=== PATIENT | male | born 1990 ===

== ENCOUNTER 2017-09-09 01:35 | Inpatient (IN) | payer MEDICAID, OTHER ==
[2017-09-09 02:08] LABS: Amphetamine Screen,Urine Not Detected (NotDetected); Barbiturate Screen,Urine Not Detected (NotDetected); Benzodiazepines Screen,Urine Not Detected (NotDetected); Cocaine Screen,Urine Not Detected (NotDetected); Methadone Screen, Urine Not Detected (NotDetected); Opiate Screen,Urine Not Detected (NotDetected); Oxycodone Screen, Urine Not Detected (NotDetected); Phencyclidine Screen,Urine Not Detected (NotDetected); Tricyclic Antidepressant,Urine Not Detected (NotDetected); Urn Cannabinoid Scrn Not Detected (NotDetected)
--- NOTE | 2017-09-09 03:27 | ED ---
Psych HPI - General Chief Complaint: Psychiatric Symptoms Stated Complaint: Mental health eval Time Seen by Provider: 09/09/17 01:44 Source: patient Mode of arrival: EMS - History of Present Illness Initial Comments: This patient is 19-year-old man who presents with complaint that he has been feeling more and more depressed and he is having thoughts of suicide. The patient is not completely forthcoming about stress source. He does have history of psychiatric illness but currently not with any treatment. He denies any medical complaints at this time. MD Complaint: suicidal ideation, feels depressed -: days(s) Associated Psychiatric Symptoms: depression History of same: Yes Quality: getting worse Improves With: none Worsens With: none Associated Symptoms: denies other symptoms - Related Data Home Medications Medication Instructions Recorded Confirmed risperiDONE [RisperDAL] 0.5 mg PO BID 09/09/17 09/09/17 Previous Rx's Medication Instructions Recorded Escitalopram [Lexapro] 10 mg PO DAILY #7 tab 03/20/15 Allergies Allergy/AdvReac Type Severity Reaction Status Date / Time No Known Allergies Allergy Verified 03/09/15 09:48 Review of Systems ROS Statement: Those systems with pertinent positive or pertinent negative responses have been documented in the HPI. ROS Other: All systems not noted in ROS Statement are negative. Constitutional: Denies: fever, chills Respiratory: Denies: cough, dyspnea Cardiovascular: Denies: chest pain, palpitations Gastrointestinal: Denies: abdominal pain, vomiting, diarrhea Genitourinary: Denies: dysuria, hematuria Musculoskeletal: Denies: back pain Skin: Denies: rash Neurological: Denies: headache, weakness Psychiatric: Reports: depression, suicidal thoughts. Denies: auditory hallucinations, visual hallucinations, homicidal thoughts Past Medical History Past Medical History: No Reported History History of Any Multi-Drug Resistant Organisms: None Reported Additional Past Surgical History / Comment(s): Open surgery on the left knee for infection Past Anesthesia/Blood Transfusion Reactions: No Reported Reaction Past Psychological History: Bipolar, Depression Smoking Status: Current every day smoker Past Alcohol Use History: Heavy Past Drug Use History: Cocaine, Heroin, IV Drug Use, Marijuana, Methamphetamine , Prescription Drug Abuse - Past Family History Father Family Medical History: No Reported History Additional Family Medical History / Comment(s): Father is alive at age 62 with history of anxiety. Mother Family Medical History: No Reported History Additional Family Medical History / Comment(s): Mother is alive at age 55 with history of epilepsy and depression. Patient had one brother and one sister that have both pasted and both were handicapped. General Exam Limitations: no limitations General appearance: alert, in no apparent distress Head exam: Present: atraumatic, normocephalic Eye exam: Present: normal appearance. Absent: scleral icterus, conjunctival injection Neck exam: Present: normal inspection Respiratory exam: Present: normal lung sounds bilaterally. Absent: respiratory distress, wheezes, rales, rhonchi, stridor Cardiovascular Exam: Present: regular rate, normal rhythm, normal heart sounds. Absent: systolic murmur, diastolic murmur, rubs, gallop GI/Abdominal exam: Present: soft. Absent: distended, tenderness, guarding, rebound, rigid Extremities exam: Present: normal inspection, normal capillary refill. Absent: pedal edema, calf tenderness Neurological exam: Present: alert, normal gait. Absent: motor sensory deficit Psychiatric exam: Present: depressed, flat affect, suicidal ideation. Absent: agitated, homicidal ideation Skin exam: Present: warm, dry, intact, normal color. Absent: rash Course Vital Signs 09/09/17 09/09/17 01:37 03:27 Temperature 98.8 F Pulse Rate 99 102 H Respiratory 20 20 Rate Blood Pressure 149/79 141/82 O2 Sat by Pulse 97 98 Oximetry Medical Decision Making - Lab Data Lab Results 09/09/17 Range/Units 01:42 Urine Opiates Screen Not Detected (NotDetected) Ur Oxycodone Screen Not Detected (NotDetected) Urine Methadone Screen Not Detected (NotDetected) Ur Propoxyphene Screen Not Detected (NotDetected) Ur Barbiturates Screen Not Detected (NotDetected) U Tricyclic Antidepress Not Detected (NotDetected) Ur Phencyclidine Scrn Not Detected (NotDetected) Ur Amphetamines Screen Not Detected (NotDetected) U Methamphetamines Scrn Not Detected (NotDetected) U Benzodiazepines Scrn Not Detected (NotDetected) Urine Cocaine Screen Not Detected (NotDetected) U Marijuana (THC) Screen Not Detected (NotDetected) Disposition Clinical Impression: Mood disorder Disposition: ADMITTED IP TO THIS [facility] Condition: Fair
[2017-09-09] MEDS ORDERED: LORazepam 1 MG TAB PO STA (04:03)
[2017-09-09] MEDS ORDERED: ZIPRASIDONE 20 MG VIAL IM STA (04:03)
[2017-09-09] MEDS ORDERED: ACETAMINOPHEN TAB 325 MG TAB PO PRN (04:13)
[2017-09-09] MEDS ORDERED: MAG HYDROX/AL HYDROX/SIMETH 30 ML CUP PO PRN (04:13)
[2017-09-09] MEDS ORDERED: MAGNESIUM HYDROXIDE 2,400 MG/10 ML CUP PO PRN (04:13)
[2017-09-09] MEDS: LORazepam 1 MG TAB PO PRN ×2 (09:40→16:37)
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
[2017-09-09] MEDS: ZIPRASIDONE 20 MG CAP PO SCH ×2 (11:57→21:20)
[2017-09-09] MEDS ORDERED: LOPERAMIDE 2 MG CAP PO PRN (11:58)
[2017-09-09] MEDS ORDERED: PROCHLORPERAZINE 10 MG TAB PO PRN (11:59)
--- NOTE | 2017-09-09 11:59 | P.PN ---
Subjective Progress Note Date: 09/09/17 Objective - Vital Signs Vital signs: Vital Signs Temp 98.3 F 09/09/17 04:42 Pulse 103 H 09/09/17 04:42 Resp 16 09/09/17 04:42 BP 126/96 09/09/17 04:42 Pulse Ox 98 09/09/17 04:42 Intake & Output 09/08/17 09/09/17 09/09/17 18:59 06:59 18:59 Weight 76.702 kg
[2017-09-09] MEDS ORDERED: SODIUM CHLORIDE 0.9% 1,000 ML IV SCH (12:00)
[2017-09-09] MEDS ORDERED: DOCUSATE 100 MG CAP PO PRN (12:01)
[2017-09-09] MEDS: NICOTINE 7MG/24HR PATCH TRANSDERM SCH (13:21)
[2017-09-09] MEDS: LORATADINE 10 MG TAB PO SCH (13:21)
--- NOTE | 2017-09-09 14:58 | P.HPMEDMHU ---
History of Present Illness H&P Date: 09/09/17 Chief Complaint: suicidal ideation Patient is a 27-year-old male for possible past medical history of hypertension, tobacco abuse, and EtOH misuse who presented with suicidal ideation has subsequently been admitted to the mental health unit. We are asked evaluate him regarding his blood pressures. Patient seen and examined. He wishes not to discuss his mental health. He does fall me that he has had constipation but has not had a bowel movement in 2 days. He is not having any abdominal discomfort from this but does feel full. He denies any nausea or vomiting. He also complains of a runny and stuffy nose with some postnasal drip. He denies any chest pain, shortness of breath, diarrhea, recent fevers fluids or coughs. He states that he was told he had high blood pressure once when he is seen in the ER has not followed with anyone since this. He has not taken any medications for this but states he was prescribed one. He has no other complaints currently Review of Systems Pertinent positives and negatives as per HPI remainder of 12 point review of systems is negative Past Medical History Additional Past Medical History / Comment(s): Possible hypertension History of Any Multi-Drug Resistant Organisms: None Reported Additional Past Surgical History / Comment(s): Open surgery on the left knee for infection X 4 Past Anesthesia/Blood Transfusion Reactions: No Reported Reaction Past Psychological History: Bipolar, Depression Smoking Status: Current every day smoker Past Alcohol Use History: Heavy Past Drug Use History: Cocaine, Heroin, IV Drug Use, Marijuana, Methamphetamine , Prescription Drug Abuse - Past Family History Father Family Medical History: No Reported History Additional Family Medical History / Comment(s): Father is alive at age 62 with history of anxiety. Mother Family Medical History: No Reported History Additional Family Medical History / Comment(s): Mother is alive at age 55 with history of epilepsy and depression. Patient had one brother and one sister that have both pasted and both were handicapped. MTERNAL GRANDFATHER STROKE Medications and Allergies Home Medications Medication Instructions Recorded Confirmed Type Escitalopram [Lexapro] 10 mg PO DAILY #7 tab 03/20/15 09/09/17 Rx risperiDONE [RisperDAL] 0.5 mg PO BID 09/09/17 09/09/17 History Allergies Allergy/AdvReac Type Severity Reaction Status Date / Time No Known Allergies Allergy Verified 03/09/15 09:48 Physical Exam Osteopathic Statement: *. No significant issues noted on an osteopathic structural exam other than those noted in the History and Physical/Consult. Vitals: Vital Signs Temp Pulse Pulse Resp BP BP Pulse Ox 09/09/17 04:42 98.3 F 103 H 16 126/96 98 09/09/17 03:27 102 H 20 141/82 98 09/09/17 01:37 98.8 F 99 20 149/79 97 Intake and Output 09/08/17 09/09/17 09/09/17 22:59 06:59 14:59 Other: Weight 76.702 kg General: non toxic, no distress, appears at stated age, normal weight Derm: no unusual rashes/lesions no unusual ecchymoses, warm, dry Head: atraumatic, normocephalic, symmetric Eyes: EOMI, no lid lag, anicteric sclera, pupils equal round reactive to light ENT: Nose and ears atraumatic, no thrush, + pharyngeal erythema, + posterior nasal drip Neck: No thyromegaly, no cervical lymphadenopathy, trachea midline, supple Mouth: no lip lesion, mucus membranes moist Cardiovascular: S1S2 reg, no murmur, positive posterior tibial pulse bilateral, no edema, capillary refill less than 2 seconds Lungs: CTA bilateral, no rhonchi, no rales , no accessory muscle use Abdominal: soft, nontender to palpation, no guarding, no appreciable organomegaly, normal bowel sounds Ext: no gross muscle atrophy, muscle strength 5 out of 5 in all 4 extremities grossly, no contractures, Psych: Alert, oriented, flat affect, slow thinking Cranial Nerve Examination - Cranial Nerves Cranial Nerve II- Optic: Intact Cranial Nerve III- Oculomotor: Intact Cranial Nerve IV- Trochlear: Intact Cranial Nerve V- Trigeminal: Intact Cranial Nerve - Abducens: Intact Cranial Nerve VII- Facial: Intact Cranial Nerve VIII- Auditory: Intact Cranial Nerve IX- Glossopharyngeal: Intact Cranial Nerve X- Vagus: Intact Cranial Nerve XI- Accessory: Intact Cranial Nerve XII- Hypoglossal: Intact Thrombosis Risk Factor Assmnt - DVT/VTE Prophylaxis DVT/VTE Prophylaxis: Low risk, early ambulation encouraged Assessment and Plan Assessment: Tobacco Abuse - Nicotine replacement - cessation Constipation - prn colace Suicidal ideation - your psych management Hx of HTN - BP currently not diagnostic of HTN - Will follow BP and intitiate meds as necessary Patient now agreeable to lab work. Thank you for allowing us to participate in the care of this patient. We will follow peripherally. Do not hesitate to contact us with questions. Someone can be reached from the [facility] hospitalist group at all hours of the day at [phone].
[2017-09-10] MEDS: LORazepam 1 MG TAB PO PRN ×3 (01:40→17:27)
[2017-09-10] MEDS: LORATADINE 10 MG TAB PO SCH (08:39)
[2017-09-10] MEDS: ZIPRASIDONE 20 MG CAP PO SCH (08:40)
[2017-09-10] MEDS: NICOTINE 7MG/24HR PATCH TRANSDERM SCH (08:40)
[2017-09-10 09:36] LABS: HCT 41.6 % (39.0-53.0); HGB 14.2 gm/dL (13.0-17.5); MCH 30.5 pg (25.0-35.0); MCV 89.5 fL (80.0-100.0); Mean Platelet Volume 6.5; Platelet Count 224 k/uL (150-450); RBC 4.65 m/uL (4.30-5.90); WBC 7.3 k/uL (3.8-10.6)
--- NOTE | 2017-09-10 09:53 | P.PN ---
Progress Note - Text Progress Note Date: 09/10/17 Patient was seen for a routine follow-up examination. He did not sleep well last night and was pacing the floor. He took his by mouth Geodon and he does not have any adverse effects. He appears to be less preoccupied with internal stimuli today and is able to engage in conversation better today. He is feeling a little better. He says he is worried quite a bit about several things. He was counseled that worrying about things over which we do not have any control is not helpful and can cause problem for us. He agreed. He said he is worried/concerned about his parents and his girlfriend. He could not tell me why he is concerned or worried about them. This is a white ambulatory male with adequate hygiene. He is polite and cooperative. He does not show any psychomotor agitation or retardation. His speech is soft short and fairly spontaneous. He does not appear to be preoccupied with internal stimuli. His mood is somewhat anxious and affect is rather constricted in range. He continues to report of auditory hallucinations which he does not understand well. He denies delusional thinking he reports of fleeting suicidal thoughts but is not preoccupied or concerned about those thoughts. He denies homicidal thoughts. He is well oriented with adequate general knowledge concentration etc. Asked Plan: Increase Geodon to 40 mg twice a day. Continue groups and other therapies.
[2017-09-10 09:55] LABS: ALT 22 U/L (21-72); AST 19 U/L (17-59); Albumin 4.6 g/dL (3.5-5.0); Alkaline Phosphatase 47 U/L (38-126); Anion Gap 9 mmol/L; Blood Urea Nitrogen 14 mg/dL (9-20); Calcium 9.9 mg/dL (8.4-10.2); Carbon Dioxide 30 mmol/L (22-30); Chloride 101 mmol/L (98-107); Cholesterol 123 mg/dL (<200); Glucose 94 mg/dL (74-99); HDL Cholesterol 73 mg/dL (40-60); LDL Cholesterol,Calculated 44 mg/dL (0-99); Potassium 4.4 mmol/L (3.5-5.1); Sodium 140 mmol/L (137-145); Total Bilirubin 0.9 mg/dL (0.2-1.3); Total Protein 7.1 g/dL (6.3-8.2); Triglycerides 29 mg/dL (<150)
[2017-09-10] MEDS: ZIPRASIDONE 40 MG CAP PO SCH (20:27)
[2017-09-10 20:43] LABS: Hemoglobin A1C 4.8 % (4.0-6.0)
[2017-09-11 06:52] VITALS: RESP 16
[2017-09-11] MEDS: ZIPRASIDONE 40 MG CAP PO SCH ×2 (09:16→21:37)
[2017-09-11] MEDS: LORATADINE 10 MG TAB PO SCH (09:17)
[2017-09-11] MEDS: NICOTINE 7MG/24HR PATCH TRANSDERM SCH (09:17)
[2017-09-11] MEDS: LORazepam 1 MG TAB PO PRN (14:10)
--- NOTE | 2017-09-11 14:32 | P.PN ---
Progress Note - Text Progress Note Date: 09/11/17 Interval History: Patient is a 27-year-old male who is seen in weekend coverage , patient continues to report that he is hearing voices and feeling paranoid. When interviewed the patient responds and only yes or no responses and is unable to elaborate further. Patient will stare during the interview. Patient was unable to verbalize any complaints of side effects from the medication. Mental Status: Appearance/Attitude: Patient is appropriately dressed, stares during the interview, is cooperative Behavior: Patient does not exhibit any psychomotor agitation or retardation. Speech/Language: Patient's speech is nonspontaneous, he responds and only brief sentences mostly yes or no, speaks in a normal tone and rhythm and is coherent Thought Process: Patient has evidence of thought blocking is his responses to questions are only yes known at times he stares and does not respond. Thought Content: Patient reports he is hearing voices but cannot elaborate on what he is hearing, denies visual hallucinations and states he remains paranoid but can again cannot elaborate. Patient appears confused and distracted during the interview, staring. Patient reports he is eating well and voiced no side effects from the medication Suicidal/Homicidal Ideation: Patient states that he is still feeling suicidal but again cannot elaborate and denied any homicidal ideation Sensorium/Cognition: Patient is alert and oriented to person, location further cognitive testing is not performed Mood/Affect: Patient's mood is guarded and his affect is flat Insight/Judgment: Patient's insight and judgment are limited Assessment: patient was seen today and he is on increased dose of Geodon to 40 mg twice a day, he remains confused with evidence of thought blocking, reporting auditory hallucinations and paranoid ideation as well as continued suicidal thoughts. Patient is unable to elaborate in response to most questions with yes or no. Patient reports no side effects from the medication. Plan: Patient will continue on 40 mg of Geodon twice a day to target his psychotic symptoms patient continues to require hospitalization to further treat his psychotic symptomatology.
[2017-09-12] MEDS: LORazepam 1 MG TAB PO PRN ×2 (02:50→11:03)
[2017-09-12] MEDS: ZIPRASIDONE 40 MG CAP PO SCH ×2 (09:07→21:18)
[2017-09-12] MEDS: NICOTINE 7MG/24HR PATCH TRANSDERM SCH (09:07)
[2017-09-12] MEDS: LORATADINE 10 MG TAB PO SCH (09:07)
--- NOTE | 2017-09-12 14:29 | P.PN ---
Progress Note - Text Progress Note Date: 09/12/17 Interval History: Patient is a 27-year-old male who is being seen in coverage over the weekend. Patient reports that he is feeling less paranoid today, he states he is no longer feeling suicidal. Patient states that he is not hearing voices and has been attending some groups and activities. He reports a family meeting with his parents went well. He reports no side effects from the medication. Mental Status: Appearance/Attitude: Patient is neatly dressed, makes eye contact and is cooperative Behavior: Patient does not display any psychomotor agitation or retardation. Speech/Language: Patient's speech is slightly slowed in response, normal volume and rhythm and he is coherent Thought Process: Patient is goal-directed, not tangential or circumstantial Thought Content: Patient denies any auditory or visual hallucinations and states he is not feeling as paranoid and is feeling safe here on the unit. He states that he is sleeping well and his appetite is good. He reports no side effects from the medication. Suicidal/Homicidal Ideation: Patient denies any current suicidal or homicidal ideation Sensorium/Cognition: Patient is alert and oriented to person, place, and time and his recent and remote memory are grossly intact. Mood/Affect: Patient's mood is less guarded today and his affect remains blunted Insight/Judgment: Patient's insight and judgment are fair Assessment: Patient was seen today and he reports feeling less paranoid and safer on the unit and reports no further suicidal ideation. He states he is not having any side effects from the medication and continues to hesitate before answering most questions. Patient has been attending groups and activities and states his family meeting went well. Plan: Patient will continue on Geodon 40 mg twice a day to target his symptoms and he continues to require hospitalization to further stabilize his symptoms.
[2017-09-13] MEDS: LORazepam 1 MG TAB PO PRN ×3 (02:17→20:13)
[2017-09-13] MEDS: ZIPRASIDONE 40 MG CAP PO SCH (08:44)
[2017-09-13] MEDS: LORATADINE 10 MG TAB PO SCH (08:44)
[2017-09-13] MEDS: NICOTINE 7MG/24HR PATCH TRANSDERM SCH (08:45)
--- NOTE | 2017-09-13 13:58 | P.PN ---
Progress Note - Text Progress Note Date: 09/13/17 Patient was seen for a follow-up examination. He did not sleep well last night and was sleeping in the afternoon. He had several small pieces of paper spread all over the floor of his room. Apparently he has been more confused over the weekend according to the nurses report. Patient says he has not been able to participate well in the groups and feels rather confused. His Geodon was increased from 20 twice a day to 40 mg twice a day on Wednesday the September 10. Since he has difficulty in sleeping well at night and either Geodon is not helping him or has caused adverse effects he agreed to try Seroquel 100 mg at bedtime dose to be adjusted. This is a white ambulatory male with fair hygiene he is polite and cooperative. He is slow in moving around. He takes a while to answer questions. His mood is somewhat anxious to fearful and affect is rather constricted in range. He denies suicidal and homicidal ideas. He feels fearful and is not sure about hearing voices. He is well oriented with adequate memory concentration general fund of knowledge etc. Plan: Change Geodon 40 mg twice a day to Seroquel 100 mg at bedtime and adjust the dose as necessary. Continue groups and other therapies.
[2017-09-13] MEDS ORDERED: QUEtiapine 100 MG TAB PO SCH (21:00)
[2017-09-14] MEDS: ZIPRASIDONE 20 MG VIAL IM PRN ×2 (02:07→21:48)
[2017-09-14] MEDS: LORATADINE 10 MG TAB PO SCH (09:02)
[2017-09-14] MEDS: NICOTINE 7MG/24HR PATCH TRANSDERM SCH (09:02)
--- NOTE | 2017-09-14 09:03 | P.PN ---
Progress Note - Text Progress Note Date: 09/14/17 Patient slept better last night and feels a little more relaxed today. Denies any side effects from Seroquel 100 mg at bedtime. He is up and about this morning. He feels the government is brainwashing him. But he does not know the reason for it. Patient is somewhat cheerful today alert and lot more cooperative. He does not appear to be preoccupied with internal stimuli. His speech is spontaneous relevant and goal-directed. Mood is euthymic to cheerful and affect is appropriate to the thought content. He denies hallucinations. But he feels the government is brainwashing him. He denies suicidal and homicidal ideas. He is well oriented with adequate memory concentration general fund of knowledge etc. Plan: Patient agreed to increase Seroquel to 200 mg at bedtime. Continue groups and other therapies.
[2017-09-14] MEDS: LORazepam 1 MG TAB PO PRN (12:46)
[2017-09-14] MEDS ORDERED: QUEtiapine 200 MG TAB PO SCH (21:00)
[2017-09-15] MEDS: LORazepam 1 MG TAB PO PRN (04:07)
[2017-09-15] MEDS: LORATADINE 10 MG TAB PO SCH (08:03)
[2017-09-15] MEDS: NICOTINE 7MG/24HR PATCH TRANSDERM SCH (08:03)
--- NOTE | 2017-09-15 09:59 | P.PN ---
Progress Note - Text Progress Note Date: 09/15/17 Patient was seen for follow-up examination. He was showering when I called him. He got a when necessary Geodon last night since he was acting rather bizarre. After this he settled down and slept well. Currently patient is cooperative and cheerful. But the nurses report that patient gets bizarre, checks the doors, stares at people and walks somewhat rigid and in a confused manner periodically. He did not have any adverse effects from 200 mg of Seroquel. Patient is polite and cooperative. Currently he is cheerful and is able to speak decently with me. He continues to report that he is being brainwashed and sometimes sees things that are not there. He continues to deny suicidal and homicidal ideas. He is well oriented with adequate memory concentration etc. Plan: Increase Seroquel to 300 mg at bedtime.
[2017-09-15 10:44] LABS: Appearance,Urine Cloudy (Clear); Bilirubin,Urine Negative (Negative); Blood,Urine Negative (Negative); Color,Urine Yellow; Glucose,Urine (UA) Negative (Negative); Ketones,Urine Negative (Negative); Leukocyte Esterase,Urine Negative (Negative); Nitrite,Urine Negative (Negative); PH, Urine 6.5 (5.0-8.0); Protein,Urine Negative (Negative); Specific Gravity,Urine 1.013 (1.001-1.035); Urobilinogen,Urine <2.0 mg/dL (<2.0); WBC,Urine 2 /hpf (0-5)
[2017-09-15] MEDS: ZIPRASIDONE 20 MG VIAL IM PRN (16:50)
[2017-09-15] MEDS ORDERED: QUEtiapine 100 MG TAB PO SCH (21:00)
[2017-09-16] MEDS: LORazepam 1 MG TAB PO PRN ×3 (00:38→17:56)
[2017-09-16] MEDS ORDERED: ZIPRASIDONE 20 MG VIAL IM ONE (03:43)
[2017-09-16] MEDS: ZIPRASIDONE 20 MG VIAL IM PRN (03:47)
[2017-09-16] MEDS: LORATADINE 10 MG TAB PO SCH (07:54)
[2017-09-16] MEDS: NICOTINE 7MG/24HR PATCH TRANSDERM SCH (07:54)
--- NOTE | 2017-09-16 10:21 | P.PN ---
Progress Note - Text Progress Note Date: 09/16/17 Patient was seen for a follow-up examination. He does not have any complaint and said he is feeling well. But he got a when necessary shot of Geodon yesterday evening again for pacing, getting confused, going into the peers' rooms, checking the door, not being redirectable etc. Apparently he settled down after the shot. When he was asked about it, he did not deny it and was somewhat surprised to know about it. He was counseled and he agreed to take his Seroquel twice a day. Currently he is polite relaxed and cooperative. He does not show any psychomotor agitation or retardation. His speech is spontaneous relevant and goal-directed. But he continues to feel he is brainwashed by the government. Denies suicidal and homicidal ideas. Denies hallucinations. He is well oriented with adequate memory concentration etc. He said he was visited by his parents girlfriend and some other friends yesterday and the visit went well. Plan: Change Seroquel 300 mg at bedtime to 200 mg twice a day starting now. Continue other plans.
[2017-09-16] MEDS: QUEtiapine 200 MG TAB PO SCH ×2 (10:26→21:00)
[2017-09-17] MEDS: LORATADINE 10 MG TAB PO SCH (09:06)
[2017-09-17] MEDS: QUEtiapine 200 MG TAB PO SCH (09:07)
[2017-09-17] MEDS: NICOTINE 7MG/24HR PATCH TRANSDERM SCH (09:07)
[2017-09-17] MEDS: LORazepam 1 MG TAB PO PRN (11:02)
--- NOTE | 2017-09-17 13:40 | P.PN ---
Progress Note - Text Progress Note Date: 09/17/17 Patient was seen for routine follow-up examination. He got a when necessary Geodon shot yesterday afternoon and by mouth Ativan this morning. He behaves fairly well when he is in the office. But the nurses report that he behaves rather strange and bizarre in the unit. Apparently he checks on doors, locks with his back on the wall and acts like he is confused etc. when I asked the patient about it he said he just feels trapped and does not know what to do and that is why he does what he does. He was advised to talk about it instead of engaging in bizarre behavior. He agreed with that idea. He also agreed to test his Seroquel increased. He does not have any adverse effects from Seroquel. This is a white ambulatory male with adequate hygiene. He is polite and cooperative. He does not show any psychomotor agitation or retardation. His speech is soft short and goal directed. He agrees that he gets confused sometimes, feels trapped, his mind tells him to do things and is being brainwashed. He denies suicidal and homicidal ideas. He is oriented with adequate memory concentration general knowledge etc. Plan: Increase Seroquel to 300 mg twice a day. Continue groups and other therapies.
[2017-09-17] MEDS: QUEtiapine 100 MG TAB PO SCH (20:15)
[2017-09-18] MEDS: LORATADINE 10 MG TAB PO SCH (08:40)
[2017-09-18] MEDS: NICOTINE 7MG/24HR PATCH TRANSDERM SCH (08:40)
[2017-09-18] MEDS: QUEtiapine 100 MG TAB PO SCH ×2 (08:40→20:26)
[2017-09-18] MEDS: LORazepam 1 MG TAB PO PRN ×2 (12:30→22:03)
--- NOTE | 2017-09-18 15:11 | P.PN ---
Progress Note - Text Interval history: The patient is found in the hallway he follows me to an interview room. He is observed slowly ambulating in the hallway most of the morning. He continues to demonstrate bizarre behavior. He selectively will attend groups. His psychotropic medications are reviewed. It appears the Seroquel was recently increased. He has no questions regarding his psychotropic medication. Vital signs reviewed. The patient denies having any symptoms. Mental status exam: The patient is a disheveled male appearing his stated age. He is dressed in his own clothing. He is observed ambulating very slowly route the mental health unit most of the morning. He demonstrates psychomotor slowing during the session. Affect is bland. He denies experiencing any auditory or visual hallucinations or specific delusions. It appears he is experiencing symptoms of psychosis based on his behavior however. He is reporting no thoughts of self-harm or harm to others. He demonstrates no tangential thinking loose associations or flight of ideas he has a relative poverty of speech during the interaction. Insight and judgment impaired. He is oriented to person place month and year as well as day of the week. Plan: The patient will continue on the Seroquel as prescribed. We will monitor him for safety. He appears to have continued symptoms of psychosis. He is encouraged to participate in as many groups as possible.
[2017-09-19 06:46] VITALS: TEMP 98.5
[2017-09-19] MEDS: LORATADINE 10 MG TAB PO SCH (09:32)
[2017-09-19] MEDS: NICOTINE 7MG/24HR PATCH TRANSDERM SCH (09:32)
[2017-09-19] MEDS: QUEtiapine 100 MG TAB PO SCH ×2 (09:32→20:28)
[2017-09-19] MEDS: LORazepam 1 MG TAB PO PRN (09:34)
--- NOTE | 2017-09-19 10:48 | P.PN ---
Progress Note - Text Interval history: The patient is found in the hallway he follows me to an interview room. He states his mood is okay. He endorses times where he feels confused as well as times when things don't feel real. When asked if he feels safe here he reports having concerns for his safety. He has been compliant with medications. He does ask about the Seroquel and its potential side effects which we reviewed. He does endorse feeling tired since using this medication. Mental status exam: The patient is alert he is tired appearing. He demonstrates psychomotor slowing with ambulation and during our conversation. There are unexpected pauses as he attempts to answer questions. He is reporting no auditory or visual hallucinations but those may be occurring. He endorses some concern regarding his safety and feelings of things not seeming real. He remains calm during the session he demonstrates no psychomotor agitation no verbal or physical aggressiveness. He demonstrates no abnormal involuntary movements. Insight and judgment impaired. When asked about suicidal ideation he states "sometimes" but does not provide any detail with further questioning regarding suicidal thoughts. He endorses no homicidal ideation. He is oriented to place is hospital the day as Wednesday he is able to correctly name the month and year. Plan: The patient's will continue on his current psychotropic medications. He continues to report and demonstrates symptoms of psychosis. We will have to monitor for sedation as this may be caused by the Seroquel. Vital signs reviewed. He is encouraged to participate in the milieu as much as possible. Reality orientation is provided.
[2017-09-20] MEDS: LORazepam 1 MG TAB PO PRN ×2 (03:05→11:31)
[2017-09-20 06:22] VITALS: BP 105/60; PULSE 120
[2017-09-20] MEDS: LORATADINE 10 MG TAB PO SCH (08:26)
[2017-09-20] MEDS: NICOTINE 7MG/24HR PATCH TRANSDERM SCH (08:26)
[2017-09-20] MEDS: QUEtiapine 100 MG TAB PO SCH (08:26)
--- NOTE | 2017-09-20 12:20 | P.DS ---
Providers Date of admission: 09/09/17 04:01 Expected date of discharge: 09/20/17 Attending physician: Ignacio Escalera Consults: 09/09/17 04:13 Consult Physician Routine Consulting Provider: [facility] Consult Reason/Comments: H and P with medical follow up Do you want consulting provider notified?: Yes Primary care physician: Stated None Hospital Course: Patient had psychiatric evaluation physical examination and psychosocial evaluation. After psychiatric evaluation he was continued on Geodon 20 mg twice a day as ordered by the admitting doctor. Since he was still psychotic Geodon was increased to 40 mg twice a day. He continued to be confused and psychotic, had trouble in sleeping well at night and in view of all these Geodon was changed to Seroquel 100 mg at bedtime. It was gradually increased to 300 mg at bedtime. But he continued to get agitated and needed when necessary medications in the afternoon. In view of this his Seroquel was changed to 200 mg twice a day. He still needed when necessary Geodon and so his Seroquel was increased to 300 mg twice a day. With this dose he improved, did not need any when necessary medications, was able to sleep well, able to get along with peers and staff, did not show any bizarre behavior and also did not have any adverse effects. He was visited by his parents and they feel he is well enough to come home. In view of all these it was agreed to discharge him. Condition at the time of discharge: This is a white ambulatory male with adequate hygiene. He is polite and cooperative. He does not show any psychomotor agitation or retardation. His speech is fairly spontaneous relevant and goal-directed. His mood is euthymic to dull and affect is appropriate to the thought content. He denies hallucinations and delusional thinking. He denies suicidal and homicidal ideas. He is well oriented with adequate memory concentration general fund of knowledge etc. His insight and judgment have improved. Diagnosis on discharge: Unspecified psychotic disorder F 29. NKDA. ALLERGIC rhinitis. Patient was advised to take his medications as prescribed, not to drink alcohol or use drugs, to learn better coping skills through therapy and not to drive or operate missionary if he feels sleepy. He agreed with all these recommendations. He will be ready to return to work on 09/27/2017. Plan - Discharge Summary New Discharge Prescriptions: New Loratadine [Claritin] 10 mg PO DAILY 30 Days #30 tab QUEtiapine [SEROquel] 300 mg PO BID 30 Days #60 tab Discontinued Escitalopram [Lexapro] 10 mg PO DAILY #7 tab risperiDONE [RisperDAL] 0.5 mg PO BID Discharge Medication List Loratadine [Claritin] 10 mg PO DAILY 30 Days #30 tab 09/20/17 [Rx] QUEtiapine [SEROquel] 300 mg PO BID 30 Days #60 tab 09/20/17 [Rx] Follow up Appointment(s)/Referral(s): [facility] [Outside] - 09/21/17 9:00 am (09/21 @ 9AM with Cherry Chu- in [place] 09/27 @ 2PM with Dr. Casas- In [place] via Video) None,Stated [Primary Care Provider] - 1-2 days
== END 2017-09-20 14:31 | disposition home or self-care (01) | DRG 885 ==
LOC: EC 01:35 → 3MHU 04:01
PROVIDERS: ADMIT Psychiatry & Neurology Psychiatry; ATTEND Psychiatry & Neurology Psychiatry
DX: F29 Unspecified psychosis not due to a substance or known physiological condition (principal); R45.851 Suicidal ideations; F17.200 Nicotine dependence, unspecified, uncomplicated; F32.9 Major depressive disorder, single episode, unspecified; J30.9 Allergic rhinitis, unspecified; G47.9 Sleep disorder, unspecified; Z79.899 Other long term (current) drug therapy; Z81.8 Family history of other mental and behavioral disorders
CPT/HCPCS: 80053; 80061; 80306; 81001; 82075; 83036; 84443; 85027; 96372; 99285